=== PATIENT | female | born 1950 | race Caucasian/White ===

== ENCOUNTER → 2020-06-29 | Outpatient (CLI) | payer BC ==
--- NOTE | 2020-07-07 10:08 | RAD ---
DATE: 06/29/2020 EXAM: DIGITAL SCREEN BILAT W/CAD HISTORY: Screening COMPARISON: 12/02/2018, 11/30/2017, 11/06/2016, 09/11/2013 This study was interpreted with the benefit of Computerized Aided Detection (CAD). Breast Density: SCATTERED The breast parenchyma shows scattered fibroglandular densities. Breast parenchyma level B. FINDINGS: No mass, suspicious calcification, or architectural distortion in either breast. IMPRESSION: No evidence of malignancy. BI-RADS CATEGORY: 1 NEGATIVE RECOMMENDED FOLLOW-UP: 12M 12 MONTH FOLLOW-UP PQRS compliance statement: Patient information was entered into a reminder system with a target due date 06/30/2021 for the next mammogram. Mammography is a sensitive method for finding small breast cancers, but it does not detect them all and is not a substitute for careful clinical examination. A negative mammogram does not negate a clinically suspicious finding and should not result in delay in biopsying a clinically suspicious abnormality. "Our facility is accredited by the [employer] Mammography [employer]."
== END ==
LOC: MAMMO 09:56
PROVIDERS: ATTEND Obstetrics & Gynecology
DX: Z12.31 Encounter for screening mammogram for malignant neoplasm of breast (principal)
CPT/HCPCS: 77067

== ENCOUNTER → 2021-08-05 | Outpatient (CLI) | payer BC ==
--- NOTE | 2021-08-05 10:19 | RAD ---
DATE: 08/05/2021. EXAM: MG 2D BILAT SCREENING HISTORY: Screening study. COMPARISON: Prior exams including one of 06/29/2020. This study was interpreted with the benefit of Computerized Aided Detection (CAD). FINDINGS: The breast parenchyma is primarily fatty replaced. Breast parenchyma level density 1.. No new discrete or dominant mass is seen, and there are no suspicious calcifications. IMPRESSION: No findings of malignancy. BI-RADS CATEGORY: 1 NEGATIVE RECOMMENDED FOLLOW-UP: 12M 12 MONTH FOLLOW-UP PQRS compliance statement: Patient information was entered into a reminder system with a target due d ate for the next mammogram. Mammography is a sensitive method for finding small breast cancers, but it does not detect them all a nd is not a substitute for careful clinical examination. A negative mammogram does not negate a clin ically suspicious finding and should not result in delay in biopsying a clinically suspicious abnorma lity. "Our facility is accredited by the [employer] Mammography [employer]." Electronically signed by: Kendrick Sarmiento Jr., MD (08/05/2021 10:17 AM) [id number]
== END ==
LOC: MAMMO 08:49
PROVIDERS: ATTEND Internal Medicine
DX: Z12.31 Encounter for screening mammogram for malignant neoplasm of breast (principal)
CPT/HCPCS: 77067

== ENCOUNTER 2021-08-29 21:30 | Emergency (ER) | payer BC ==
[~2021-08-29] VITALS: Ht 144.8 cm; Wt 61.4 kg
[2021-08-29 21:41] VITALS: BP 180/103
--- NOTE | 2021-08-29 21:53 | PHYS DOC ---
Adult General Chief Complaint Chief Complaint: HIP PAIN HPI HPI Patient is an otherwise healthy 71-year-old female who presents with pain in her left buttock. States she was at [employer] this morning while shopping, bent over to pecan picker some close and fell to twinge of pain in her upper left buttock, sharp in nature, 6 out of 10 with no radiation. States she has not had anything like this before. States that it started out sharp and is now dull and achy. States he took some ibuprofen in the early afternoon with some minimal relief. Denies any numbness/weakness/tingling. Denies any trouble sitting, standing or walking. Review of Systems Review of Systems Review of systems otherwise unremarkable except noted in HPI Allergies Allergies Allergies Coded Allergies Type Severity Reaction Last Updated Verified morphine Adverse Reaction Unknown Nausea 08/29/21 Yes Physical Exam Physical Exam Constitutional: Well developed, well nourished, no acute distress, non-toxic appearance. [] HENT: Normocephalic, atraumatic, Neck: Normal range of motion, no tenderness, Cardiovascular:Heart rate regular rhythm, no murmur [] Lungs & Thorax: Bilateral breath sounds clear to auscultation [] Abdomen: Bowel sounds normal, soft, no tenderness, no masses, no pulsatile masses. [] Skin: Warm, dry, no erythema, no rash. [] Back: No midline or Spinal muscle tenderness, deformities or bruising. Patient has some tenderness in the upper left buttock probably right around sciatic nerve. Neurovascular exam intact. Extremities: No tenderness, no cyanosis, no clubbing, ROM intact, no edema. [] Neurologic: Alert and oriented X 3, normal motor function, normal sensory function, able to sit, stand and walk without issue no focal deficits noted. [] Psychologic: Affect normal, judgement normal, mood normal. [] EKG EKG [] Radiology/Procedures Radiology/Procedures [] Heart Score C/O Chest Pain: No Risk Factors: Risk Factors: DM, Current or recent (<one month) smoker, HTN, HLP, family history of CAD, obesity. Risk Scores: Risk Factors: DM, Current or recent (<one month) smoker, HTN, HLP, family history of CAD, obesity. Course & Med Decision Making Course & Med Decision Making Patient is a 71-year-old female who presents with a chief complaint of pain in the left buttock Vital signs not concerning. Physical exam noted above. Given pain medicine and muscle relaxer. Imaging with no acute osseous abnormalities. Discussed all findings with nicole whyte. Discussed symptom management at home. Advised to follow-up in the morning with primary care physician discuss ED visit. Gave return cautions to the ED. Patient grateful, verbalized understanding and agreed with plan of discharge. [] Dragon Disclaimer Dragon Disclaimer This electronic medical record was generated, in whole or in part, using a voice recognition dictation system. Departure Departure: Impression: Primary Impression: Low back pain Disposition: HOME / SELF CARE / HOMELESS Condition: IMPROVED Referrals: TIARA MASSEY MD (PCP) Patient Instructions: Back Pain, Adult, Sciatica Additional Instructions: Thank you for coming into the emergency department tonight and allowing us to take care of you. Please read the attached information carefully to go back over things we discussed. Please continue a scheduled Tylenol, ibuprofen and ice regimen and use your muscle relaxers as prescribed and as needed. Please be careful when taking your muscle relaxers and do not have any alcohol or drive with these. Please follow-up in the morning with your primary care physician to discuss your ED visit and set up a follow-up as soon as you can. Please do some stretching and movements as we discussed. Please come back with new or concerning symptoms as we discussed. MILLER WYLIE MD Aug 29, 2021 21:53
[2021-08-29] MEDS ORDERED: KETOROLAC 60 MG/2 ML VIAL. IM ONE (22:00)
[2021-08-29] MEDS ORDERED: CYCLOBENZAPRINE 10 MG TABLET. PO ONE (22:00)
[2021-08-29] MEDS ORDERED: CYCLOBENZAPRINE 10MG 4TABLET STARTPACK PO ONE (22:00)
[2021-08-29] MEDS ORDERED: oxyCODONE/APAP 5/325 1 TAB TABLET PO ONE (22:00)
--- NOTE | 2021-08-29 23:21 | RAD ---
XR HIP (WITH OR WITHOUT PELVIS) 1 VIEW DATE: 08/29/2021 9:56 PM INDICATION: Bilateral hip pain, worse on left hip COMPARISON: None. FINDINGS: Bones: There is no evidence of acute fracture or dislocation. Joints: Mild degenerative changes of the hips. Moderate degenerative changes of the SI joints and sym physis pubis Miscellaneous: None. IMPRESSION: No acute fracture. Mild degenerative changes of the hips. Electronically signed by: Octavio Antonio MD (08/29/2021 11:18 PM) BRANDI
== END 2021-08-29 23:27 | disposition home or self-care (01) ==
LOC: ER 21:30
DX: M54.59 Other low back pain (principal); Z88.5 Allergy status to narcotic agent
CPT/HCPCS: 73521; 96372; 99284; J1885

== ENCOUNTER 2021-08-31 13:29 | Emergency (ER) | payer BC ==
[~2021-08-31] VITALS: Ht 144.8 cm; Wt 61.4 kg
[2021-08-31 14:32] VITALS: BP 163/55
[2021-08-31] MEDS ORDERED: KETOROLAC 60 MG/2 ML VIAL. IM ONE (15:15)
[2021-08-31] MEDS ORDERED: CYCLOBENZAPRINE 10 MG TABLET. PO ONE (15:15)
[2021-08-31] MEDS ORDERED: methylPREDNISolone ACETATE 40 MG/ML VIAL. IM ONE (15:15)
--- NOTE | 2021-08-31 15:21 | PHYS DOC ---
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 Patient states it is radiating down her left leg. Patient was seen here on Sunday for same symptoms and given Flexeril and pain medication. Patient reports that the pain medication helped at that time. Patient states that she took 10 mg of Flexeril this morning which gave minimal relief. Pain is worse with movement and improves while sitting. Denies injury. Denies saddle anesthesia. Denies urinary retention or loss of bowel. Patient has chronic back pain. (CLAUDINE ARORA APRN) Review of Systems: Review of Systems: Constitutional: Denies fever or chills Eyes: Denies change in visual acuity HENT: Denies nasal congestion or sore throat Respiratory: Denies cough or shortness of breath Cardiovascular: Denies chest pain or edema GI: Denies abdominal pain, nausea, vomiting, bloody stools or diarrhea : Denies dysuria Musculoskeletal: Denies back pain or joint pain Integument: Denies rash Neurologic: Denies headache, focal weakness or sensory changes Endocrine: Denies polyuria or polydipsia Lymphatic: Denies swollen glands Psychiatric: Denies depression or anxiety (CLAUDINE ARORA APRN) Allergies: Allergies: Allergies Coded Allergies Type Severity Reaction Last Updated Verified morphine Adverse Reaction Unknown Nausea 08/29/21 Yes (CLAUDINE ARORA APRN) Physical Exam: PE: Constitutional: Well developed, well nourished, no acute distress, non-toxic appearance. [] HENT: Normocephalic, atraumatic, bilateral external ears normal, oropharynx moist, no oral exudates, nose normal. [] Eyes: PERRLA, EOMI, conjunctiva normal, no discharge. [] Neck: Normal range of motion, no tenderness, supple, no stridor. [] Cardiovascular:Heart rate regular rhythm, no murmur [] Lungs & Thorax: Bilateral breath sounds clear to auscultation [] Abdomen: Bowel sounds normal, soft, no tenderness, no masses, no pulsatile masses. [] Skin: Warm, dry, no erythema, no rash. [] Back: Left-sided tenderness, no CVA tenderness. [] Extremities: No tenderness, no cyanosis, no clubbing, ROM intact, no edema. [] Neurologic: Alert and oriented X 3, normal motor function, normal sensory function, no focal deficits noted. [] Psychologic: Affect normal, judgement normal, mood normal. [] (CLAUDINE ARORA APRN) Current Patient Data: Vital Signs: Vital Signs Date Time Temp Pulse Resp B/P (MAP) Pulse Ox O2 Delivery O2 Flow Rate FiO2 08/31/21 14:32 98.1 88 18 163/55 (91) 100 Room Air (CLAUDINE ARORA APRN) EKG: EKG: [] (CLAUDINE ARORA APRN) Radiology/Procedures: Radiology/Procedures: [] (CLAUDINE ARORA APRN) Heart Score: C/O Chest Pain: No Risk Factors: Risk Factors: DM, Current or recent (<one month) smoker, HTN, HLP, family history of CAD, obesity. Risk Scores: Score 0 - 3: 2.5% MACE over next 6 weeks - Discharge Home Score 4 - 6: 20.3% MACE over next 6 weeks - Admit for Clinical Observation Score 7 - 10: 72.7% MACE over next 6 weeks - Early Invasive Strategies (CLAUDINE ARORA APRN) Course & Med Decision Making: Course & Med Decision Making Pertinent Labs and Imaging studies reviewed. (See chart for details) [] 71-year-old female presents with left-sided back pain that radiates down her left leg. Patient has a history of chronic back pain. Patient was treated in the ER on Sunday for same symptoms. Denies saddle anesthesia. Denies loss of bowel or urinary retention. Patient's pain was treated in the ER with Flexeril and Toradol IM injection. Patient sent home with prescription for Flexeril. Advised patient to take ibuprofen along with the Flexeril. Patient to follow-up with her PCP in the next 2 to 3 days if pain does not improve. Discussed return precautions at length. Patient reports that she understands discharge instructions. (CLAUDINE ARORA APRN) Course & Med Decision Making I was the ER physician during date of ER visit. PSYCHOLOGICAL STRESS EVALUATOR independently saw and treated patient. Although I was in the department seeing other patients, no assistance was requested. Electronically signed, Meghann Pennington DO (MEGHANN PENNINGTON DO) Fidelina Disclaimer: Fidelina Disclaimer: This electronic medical record was generated, in whole or in part, using a voice recognition dictation system. (ULYSSESCLAUDINE KING) Departure Departure: Impression: Primary Impression: Back pain with sciatica Disposition: HOME / SELF CARE / HOMELESS Condition: STABLE Referrals: TIARA MASSEY MD (PCP) Patient Instructions: Sciatica, [id number] Additional Instructions: You are seen emergency room for lower back pain that radiated down your left leg. You were given steroids, muscle relaxer, pain medication while in the ER. Also sending you home with a prescription for Flexeril. Please use ibuprofen as well. Please follow-up with your PCP in the next 24 to 48 hours. Please return to the emergency room if you have loss of bowel or if you are unable to urinate. Return to emergency room with any worsening symptoms or concerns you may have. EMERGENCY DEPARTMENT GENERAL DISCHARGE INSTRUCTIONS Thank you for coming to [facility] (ED) today and trusting us with you care. We trust that you had a positivie experience in our Emergency Department. If you wish to speak to the department management, you may call the director at [phone]. YOUR FOLLOW UP INSTRUCTIONS ARE FOLLOWS: 1. Do you have a private Doctor? If you do not have a private doctor, please ask for a resource list of physicians or clinics that may be able to assist you with follow up care. 2. The Emergency Physician has interpreted your x-rays. The X-Ray specialist will also review them. If there is a change in the findings, you will be notified in 48 hours when at all possible. 3. A lab test or culture has been done, your results will be reviewed and you will be notified if you need a change in treatment. ADDITIONAL INSTRUCTIONS AND INFORMATION: 1. Your care today has been supervised by a physician who is specially trained in emergency care. Many problems require more than one evaluation for a complete diagnosis and treatment. We recommend that you schedule your follow up appointment as recommended to ensure complete treatment of you illness or injury. If you are unable to obtain follow up care and continue to have a problem, or if your condition worsens, we recommend that you return to the ED. 2. We are not able to safely determine your condition over the phone nor are we able to give sound medical advice over the phone. For these safety reasons, if you call for medical advice we will ask you to come to the ED for further evaluation. 3. If you have any questions regarding these discharge instructions please call the ED at [phone]. SAFETY INFORMATION: In the interest of safety, wellness, and injury prevention; we encourage you to wear your sealbelt, if you smoke; quite smoking, and we encourage family to use a protective helmet for bicycling and other sporting events that present an increased risk for head injury. IF YOUR SYMPTOMS WORSEN OR NEW SYMPTOMS DEVELOP, OR YOU HAVE CONCERNS ABOUT YOUR CONDITION; OR IF YOUR CONDITION WORSENS WHILE YOU ARE WAITING FOR YOUR FOLLOW UP JOHNNY OINTMENT; EITHER CONTACT YOUR PRIMARY CARE DOCTOR, THE PHYSICIAN WHOSE NAME AND NUMBER YOU WERE GIVEN, OR RETURN TO THE ED IMMEDIATELY. Scripts Cyclobenzaprine Hcl (CYCLOBENZAPRINE HCL) 10 Mg Tablet 1 TAB PO TID PRN for PAIN for 5 Days, #15 TAB 0 Refills Prov: CLAUDINE ARORA APRN 08/31/21 CLAUDINE ARORA APRN Aug 31, 2021 15:21 MEGHANN PENNINGTON DO Sep 02, 2021 11:11
[2021-08-31] MEDS ORDERED: CYCL10TA19 PO (15:27)
== END 2021-08-31 15:55 | disposition home or self-care (01) ==
LOC: ER 13:29
DX: M54.32 Sciatica, left side (principal); M54.89 Other dorsalgia; G89.29 Other chronic pain; C85.90 Non-Hodgkin lymphoma, unspecified, unspecified site; Z90.49 Acquired absence of other specified parts of digestive tract; Z90.89 Acquired absence of other organs; Z88.5 Allergy status to narcotic agent
CPT/HCPCS: 96372; 99284; J1030; J1885

== ENCOUNTER → 2022-02-06 | Outpatient (CLI) | payer BC ==
[~2022-02-06] MED LIST: CYCL10TA19 PO
--- NOTE | 2022-02-06 11:37 | RAD ---
Realtime grayscale and color Duplex Doppler ultrasonography of the right lower extremities was perfor med. History: Neuritis Comparison: None. Findings: Right: Common femoral artery peak systolic velocity measures 99 cm/s. Waveform: biphasic Profunda femoris artery peak systolic velocity measures 80 cm/s. Waveform: biphasic High superficial femoral artery peak systolic velocity measures 62 cm/s. biphasic Mid superficial femoral artery peak systolic velocity measures 93 cm/s. biphasic Low superficial femoral artery peak systolic velocity measures 72 cm/s. biphasic Popliteal artery peak systolic velocity measures 73 cm/s. biphasic Mid Posterior tibial artery peak systolic velocity measures 78 cm/s. biphasic Mid Peroneal artery peak systolic velocity measures 57 cm/s. biphasic Posterior Tibial (ankle) artery peak systolic velocity measures 73 cm/s. biphasic Dorsalis pedis (foot) artery peak systolic velocity measures 33m/s. biphasic Impression: 1. Findings do not show any evidence of significant stenosis in the right lower extremity arterial sy stem. Electronically signed by: Arjun Evans MD (02/06/2022 11:34 AM) [id number]
== END ==
LOC: US 09:00
PROVIDERS: ATTEND Internal Medicine
DX: M79.2 Neuralgia and neuritis, unspecified (principal)
CPT/HCPCS: 93926